=== PATIENT | female | born 1980 | race Caucasian/White ===

== ENCOUNTER 2017-11-08 06:53 | Day surgery (SDC) | payer OTHER ==
[2017-11-08] MEDS: BUPIVACAINE 0.25%/EPI (SDV) 30 ML INJ INJ
[~2017-11-08 06:53] MED LIST: CEFAZOLIN 2 GM/50 ML (PMX) 50 ML IVPB; SOD CHLORIDE 0.9% 1,000 ML IV
[2017-11-08] MEDS ORDERED: BUPIVACAINE 0.25%/EPI (MDV) 50 ML VIAL INJ (07:00)
[2017-11-08] MEDS ORDERED: CEFAZOLIN 1 GM INJ (07:00)
[2017-11-08] MEDS ORDERED: FENTAnyl 50 MCG/ML VIAL (07:22)
[2017-11-08] MEDS ORDERED: LIDOCAINE 2% (SDV) 5 ML INJ (07:22)
[2017-11-08] MEDS ORDERED: ROCURONIUM 50 MG INJ (07:22)
[2017-11-08] MEDS ORDERED: NEOSTIGMINE 3 MG/3 ML SYRINGE (07:22)
[2017-11-08] MEDS ORDERED: MIDAZOLAM 1 MG/ML 2 ML INJ (07:22)
[2017-11-08] MEDS ORDERED: PROPOFOL 20 ML (07:22)
[2017-11-08] MEDS ORDERED: GLYCOPYRROLATE 0.4 MG INJ (07:22)
[2017-11-08] MEDS ORDERED: ONDANSETRON 4 MG INJ (07:23)
[2017-11-08] MEDS ORDERED: DEXAMETHASONE 4 MG/ML 1 ML INJ (07:23)
[2017-11-08] MEDS ORDERED: DIPHENHYDRAMINE 50 MG INJ IV (07:30)
[2017-11-08] MEDS ORDERED: EPHEDrine SULFATE 50 MG/5 ML SYG IV (07:30)
[2017-11-08] MEDS ORDERED: ATROPINE 1 MG/10 ML SYRINGE IV (07:30)
[2017-11-08] MEDS ORDERED: ONDANSETRON 4 MG INJ IV (07:30)
[2017-11-08] MEDS ORDERED: OXYCODONE/ACETAMINOPHEN (5/325) TAB PO ×2 (07:30)
[2017-11-08] MEDS ORDERED: MIDAZOLAM 1 MG/ML 2 ML INJ IV (07:30)
[2017-11-08] MEDS ORDERED: FENTAnyl 50 MCG/ML VIAL IV ×2 (07:30)
[2017-11-08] MEDS ORDERED: MEPERIDINE 25 MG INJ IV (07:30)
[2017-11-08] MEDS ORDERED: HYDROmorphONE (0.2 MG/ML) 10ML SYG IV ×3 (07:30)
[2017-11-08] MEDS ORDERED: LABETALOL HCL 20MG INJ IV (07:30)
[2017-11-08] MEDS ORDERED: hydrALAzine 20 MG INJ IV (07:30)
[2017-11-08] MEDS ORDERED: morphine (1 MG/ML) 10ML SYRINGE IV ×3 (07:30)
[2017-11-08 09:08] LABS: ADD MAN DIFF? NO
[2017-11-08 09:09] LABS: BASOPHIL # 0.1 10^3/ul (0.0-0.1); EOSINOPHILS # 0.1 10^3/ul (0.0-0.5); EOSINOPHILS % 2.1 % (0.0-7.0); HEMATOCRIT 35.2 % (37.0-47.0); HEMOGLOBIN 11.7 g/dl (12.0-16.0); LYMPHOCYTES % 31.7 % (15.0-51.0); MEAN CORPUSCULAR HEMOGLOBIN 29.3 pg (29.0-33.0); MEAN CORPUSCULAR HGB CONC 33.2 g/dl (32.0-37.0); MEAN CORPUSCULAR VOLUME 88.2 fl (82.0-101.0); MEAN PLATELET VOLUME 10.3 fl (7.4-10.4); MONOCYTE # 0.5 10^3/ul (0.3-0.9); MONOCYTES % 7.8 % (0.0-11.0); NEUTROPHIL # 3.6 10^3/ul (1.6-7.5); NEUTROPHILS % 57.1 % (39.0-77.0); PLATELET COUNT 327 10^3/UL (140-415); RED BLOOD COUNT 3.99 10^6/ul (4.20-5.40)
[2017-11-08 09:09] LABS: WHITE BLOOD COUNT 6.3 10^3/ul (4.8-10.8)
[2017-11-08 09:13] LABS: INR 0.91; PROTIME 12.3 Sec (11.9-14.9)
[2017-11-08 09:18] LABS: ALANINE AMINOTRANSFERASE 32 IU/L (13-69); ALBUMIN 4.7 g/dl (3.3-4.9); ALBUMIN/GLOBULIN RATIO 1.46; ALKALINE PHOSPHATASE 61 IU/L (42-121); ANION GAP 12 (8-16); ASPARTATE AMINO TRANSFERASE 26 IU/L (15-46); BILIRUBIN,INDIRECT 0.7 mg/dl (0-1.1); BILIRUBIN,TOTAL 0.7 mg/dl (0.2-1.3); CARBON DIOXIDE 28 mmol/L (21-31); CHLORIDE 106 mmol/L (97-110); GLUCOSE 93 mg/dl (70-220); TOTAL PROTEIN 7.9 g/dl (6.1-8.1)
[2017-11-08 09:22] LABS: BLOOD UREA NITROGEN 16 mg/dl (7-20); CALCIUM 9.5 mg/dl (8.4-10.2); CREATININE 0.51 mg/dl (0.44-1.00); POTASSIUM 4.1 mmol/L (3.5-5.1); SODIUM 142 mmol/L (135-144)
== END 2017-11-08 11:05 | disposition home or self-care (01) ==
LOC: SDS 06:53
DX: L90.5 Scar conditions and fibrosis of skin (principal); L72.0 Epidermal cyst
CPT/HCPCS: 14000; 80053; 84703; 85025; 85610; 85730; 88307